=== PATIENT | female | born 2005 | race Caucasian/White ===

== ENCOUNTER → 2024-09-18 09:59 | Outpatient (BNVA) | payer OTHER, SELFPAY | PROVIDERS: Family Provider Pediatrics Adolescent Medicine; PCP Pediatrics Adolescent Medicine; Visit Provider Nurse Practitioner Family | DX: Z02.83 Encounter for blood-alcohol and blood-drug test (principal) | CPT/HCPCS: 80306 ==

== ENCOUNTER 2024-10-30 15:28 | Outpatient (CLI) | payer OTHER, SELFPAY | END 2024-10-30 15:29 | disposition home or self-care (01) | LOC: LAB 15:30 | PROVIDERS: Family Provider Pediatrics Adolescent Medicine; PCP Pediatrics Adolescent Medicine; Visit Provider Family Medicine | DX: Z32.01 Encounter for pregnancy test, result positive (principal) | CPT/HCPCS: 84702 ==

== ENCOUNTER 2024-11-01 15:36 | Outpatient (CLI) | payer OTHER, SELFPAY ==
[2024-11-01 16:43] LABS: HCG Quantitative 82.15 mIU/mL
== END 2024-11-01 15:37 | disposition home or self-care (01) ==
PROVIDERS: Family Provider Pediatrics Adolescent Medicine; PCP Pediatrics Adolescent Medicine; Visit Provider Family Medicine
DX: O20.0 Threatened abortion (principal)
CPT/HCPCS: 84702

== ENCOUNTER 2025-09-02 20:19 | Outpatient (CLI) | payer OTHER, SELFPAY ==
[2025-09-02 20:25] VITALS: BP 128/79; PULSE 86
[2025-09-02 20:31] VITALS: RESP 16; BMI 26.3
[2025-09-02 20:47] VITALS: BP 117/75; PULSE 81
== END 2025-09-02 21:04 | disposition home or self-care (01) ==
LOC: OPOB 20:20 → OBGYN 20:21
PROVIDERS: PCP Pediatrics Adolescent Medicine; Visit Provider Family Medicine
DX: O36.8190 Decreased fetal movements, unspecified trimester, not applicable or unspecified (principal); Z3A.00 Weeks of gestation of pregnancy not specified
CPT/HCPCS: 59025; 99211

== ENCOUNTER 2025-09-10 16:23 | Outpatient (CLI) | payer OTHER, SELFPAY ==
[2025-09-10 16:25] VITALS: BMI 26.6
[2025-09-10 16:30] VITALS: BP 125/76; PULSE 77
[2025-09-10 16:45] VITALS: BP 124/77; PULSE 77
[2025-09-10 16:53] VITALS: BP 124/77; PULSE 77; RESP 16; O2SAT 98
== END 2025-09-10 16:53 | disposition home or self-care (01) ==
LOC: OPOB 16:25 → OBGYN 16:25
PROVIDERS: PCP Pediatrics Adolescent Medicine; Visit Provider Family Medicine
DX: O24.419 Gestational diabetes mellitus in pregnancy, unspecified control (principal); Z3A.00 Weeks of gestation of pregnancy not specified
CPT/HCPCS: 59025; 99211

== ENCOUNTER 2025-09-13 15:15 | Outpatient (CLI) | payer OTHER, SELFPAY ==
[2025-09-13 15:09] VITALS: BMI 25.8
[2025-09-13 15:22] VITALS: BP 105/78; PULSE 116
[2025-09-13 15:44] VITALS: BP 128/80; PULSE 120
== END 2025-09-13 15:52 | disposition home or self-care (01) ==
LOC: OPOB 15:16 → OBGYN 15:18
PROVIDERS: PCP Pediatrics Adolescent Medicine; Visit Provider Family Medicine
DX: O24.419 Gestational diabetes mellitus in pregnancy, unspecified control (principal); Z3A.00 Weeks of gestation of pregnancy not specified
CPT/HCPCS: 59025; 99211

== ENCOUNTER 2025-09-21 16:19 | Outpatient (CLI) | payer OTHER, SELFPAY ==
--- NOTE | 2025-09-21 16:32 | USR_ITS ---
PROCEDURE INFORMATION: Exam: US , Follow up Exam date and time: 09/21/2025 4:36 PM Age: 19 years old Clinical indication: Screening exam; Routine US, uterus; Additional info: Additional outflow views LABS AND CLINICAL REPORTS: Gestational age (Established): 37 w 4 d Estimated due date (Established): 10/08/2025 TECHNIQUE: Imaging protocol: Transabdominal ultrasound of the uterus, real time with image documentation. Follow-up (eg, re-evaluation of size by measuring standard growth parameters and amniotic fluid volume, re-evaluation of organ system(s) suspected or confirmed to be abnormal on a previous scan). COMPARISON: US OB >= 14 weeks fetus [id number] 05/24/2025 3:23 PM FINDINGS: Gestation: Single, viable intrauterine gestation. heart rate: 129 bpm presentation and position: The fetus is in cephalic presentation. Placenta: The placenta is anterior. Grade 2 placenta. Amniotic fluid index: Amniotic fluid index is unremarkable with a maximum vertical pocket of 4.6 cm. ANATOMY: heart four-chamber view, heart size and position: Right and left ventricular outflow tracks are unremarkable. There is a four-chamber heart. MATERNAL: Cervix: Limited visualization of the maternal cervix due to positioning of the head and an incompletely filled maternal bladder. US[place] [id number] IMPRESSION: 1. Single, viable intrauterine gestation. 2. Right and left ventricular outflow tracks are unremarkable. There is a four-chamber heart. 3. Limited visualization of the maternal cervix due to positioning of the head and an incompletely filled maternal bladder. 4. Incidental/nonacute findings are listed in the report.
== END 2025-09-21 16:20 | disposition home or self-care (01) ==
LOC: RAD 16:22
PROVIDERS: PCP Family Medicine; Visit Provider Family Medicine
DX: O24.419 Gestational diabetes mellitus in pregnancy, unspecified control (principal); Z3A.37 37 weeks gestation of pregnancy
CPT/HCPCS: 76816

== ENCOUNTER 2025-09-26 21:19 | Outpatient (CLI) | payer OTHER, SELFPAY ==
[2025-09-26 21:13] VITALS: BMI 26.5
[2025-09-26 21:20] VITALS: RESP 16
[2025-09-26 21:25] VITALS: BP 124/86; PULSE 106
[2025-09-26 21:41] VITALS: BP 121/89; PULSE 111
[2025-09-26 21:55] VITALS: BP 116/76; PULSE 95
[2025-09-26 22:17] VITALS: BP 116/76; PULSE 95; RESP 16
== END 2025-09-26 22:13 | disposition home or self-care (01) ==
LOC: OPOB 21:19 → OBGYN 21:20
PROVIDERS: PCP Family Medicine; Visit Provider Family Medicine
DX: O26.899 Other specified pregnancy related conditions, unspecified trimester (principal); Z3A.00 Weeks of gestation of pregnancy not specified; N89.8 Other specified noninflammatory disorders of vagina
CPT/HCPCS: 59025; 84112; 99211